=== PATIENT | female | born 1955 | race Caucasian/White ===

== ENCOUNTER 2017-10-20 21:29 | Inpatient (IN) | payer MEDICAID ==
[~2017-10-20] VITALS: Ht 167.6 cm; Wt 65.3 kg
[~2017-10-20 21:29] MED LIST: ALPR2TAB2 PO; AZIT250T81 PO; CLOP75TA35 PO; CYCL-1 PO; FAMO-128 PO; LANTUS SQ; LISI40TA4 PO; NOR5T PO; NOVLG SQ; ONDA4TAB6 PO; SERT100T PO; TRAZ-91 PO; ZOC40T PO
[2017-10-20] MEDS ORDERED: normal saline 1000ML IV soln IV ONE (21:55)
[2017-10-20 22:14] LABS: BASOPHILS % (AUTO) 0 % (0-1); EOSINOPHILS % (AUTO) 0 % (0-6); HEMATOCRIT 33.2 % (35.0-45.0); HEMOGLOBIN 10.2 g/dl (12.0-16.0); LYMPHOCYTES # (AUTO) 0.5 X10'3 (1.1-4.8); LYMPHOCYTES % (AUTO) 4.7 % (21-51); MEAN CORPUSCULAR HEMOGLOBIN 20.8 PG (27.0-31.0); MEAN CORPUSCULAR HGB CONC 30.7 % (33.0-36.5); MEAN CORPUSCULAR VOLUME 67.8 FL (78-98); MEAN PLATELET VOLUME 8.7 FL (7.4-10.4); MONOCYTES # (AUTO) 0.1 X10'3 (0-0.9); MONOCYTES % (AUTO) 0.7 % (2-12); NEUTROPHILS # (AUTO) 10.4 X10'3 (1.8-7.7); NEUTROPHILS % (AUTO) 94.6 % (42-75); PLATELET COUNT 442 X10'3 (140-440); RED BLOOD COUNT 4.89 X10'6 (4.20-5.60); RED CELL DISTRIBUTION WIDTH 21.6 % (11.5-14.5)
[2017-10-20 22:25] LABS: PARTIAL THROMBOPLASTIN TIME 23 SECONDS (22-32); PROTHROMBIN TIME 10.7 SECONDS (9.0-12.0)
[2017-10-20 22:38] LABS: ALANINE AMINOTRANSFERASE 19 U/L (12-78); ALKALINE PHOSPHATASE 244 IU/L (46-116); ANION GAP 32 (8-16); ASPARTATE AMINO TRANSFERASE 14 U/L (10-37); BILIRUBIN,TOTAL 0.7 MG/DL (0.1-1.0); BLOOD UREA NITROGEN 52 MG/DL (7-18); BUN/CREATININE RATIO 20.3 (6.6-38.0); CALCIUM 9.7 MG/DL (8.5-10.1); CHLORIDE 82 MMOL/L (99-107); CREATININE 2.56 MG/DL (0.40-0.90); MAGNESIUM 2.6 MG/DL (1.5-2.4); SODIUM 122 MMOL/L (135-145); TOTAL PROTEIN 8.2 G/DL (6.4-8.2); TROPONIN I < 0.04 NG/ML (0.0-0.05); eGFR 19 ML/MIN
[2017-10-20] MEDS: sodium bicarbonate (8.4%) 1 mEq/ml syringe IV ONE ×2 (22:39→22:47)
[2017-10-20] MEDS ORDERED: normal saline 1000ML IV soln IVB ONE (22:40)
[2017-10-20 22:42] LABS: POTASSIUM 6.9 MMOL/L (3.5-5.1)
[2017-10-20 22:43] LABS: TOTAL CARBON DIOXIDE 8.3 MMOL/L (24-32)
[2017-10-20] MEDS ORDERED: insulin regular, DKA only 100 UNIT in normal saline 100ml IV soln 99 ML IV SCH ×2 (22:45)
[2017-10-20] MEDS ORDERED: potassium Cl 20 mEq SR tablet PO PRN ×2 (22:45)
[2017-10-20] MEDS ORDERED: potassium Cl 40MEQ/NS 500ml 500 ML IV PRN ×2 (22:45)
[2017-10-20] MEDS ORDERED: potassium CL 20mEq in D5-1/2NS 1,000 ML IV PRN (22:45)
[2017-10-20] MEDS ORDERED: sodium bicarbonate (8.4%) inj. 50 MEQ in sodium chloride 0.45% 500ml 250 ML IV PRN (22:45)
[2017-10-20] MEDS ORDERED: insulin regular, human 10 units/0.1 ml syringe SQ PRN (22:45)
[2017-10-20] MEDS ORDERED: sodium bicarbonate (8.4%) inj. 100 MEQ in sodium chloride 0.45% 500ml 500 ML IV PRN (22:45)
[2017-10-20] MEDS ORDERED: K and/or MAG REPLACEMENT MC SCH (22:45)
[2017-10-20] MEDS ORDERED: sodium phosphate inj. 15 MMOL in dextrose 5%-water 150 ML IV PRN (22:45)
[2017-10-20] MEDS ORDERED: normal saline 1000ml 1,000 ML IV SCH (22:45)
[2017-10-20] MEDS ORDERED: Neutra Phos packet PO PRN (22:45)
[2017-10-20] MEDS ORDERED: sodium phosphate inj. 30 MMOL in dextrose 5%-water 250 ML IV PRN (22:45)
[2017-10-20] MEDS ORDERED: calcium gluconate inj. 2 GM in normal saline 100ml IV soln 100 ML IV ONE (22:50)
[2017-10-20] MEDS ORDERED: insulin regular, human 10 units/0.1 ml syringe IV ONE (22:50)
[2017-10-20 22:57] LABS: GLUCOSE 1184 MG/DL (70-104)
[2017-10-20] MEDS ORDERED: insulin R INFUSION 1 ML IV ONE (23:01)
[2017-10-20 23:11] LABS: PHOSPHORUS 7.1 MG/DL (2.3-4.5)
[2017-10-21] VITALS (30 sets, daily range): BP systolic 123–188; BP diastolic 49–80
[2017-10-21] LABS: CLARITY,URINE Clear (Clear); COLOR,URINE Yellow (Yellow); GLUCOSE, URINE >=1000 mg/dl (Neg); KETONES,URINE 80 mg/dl (Neg); LEUKOCYTE ESTERASE ,URINE Negative (Neg); NITRITES, URINE Negative (Neg); OCCULT BLOOD,URINE Negative (Neg); PROTEIN,URINE Trace mg/dl (Neg); UROBILINOGEN,URINE 0.2 E.U/dL (0.2-1.0)
[2017-10-21 00:01] LABS: ABG BASE EXCESS -19.1 mmol/L (-2.0-3.0); ABG HCO3 7.8 mmol/L (22.0-26.0); ABG OXYGEN SATURATION 92.9 % (95-98); ABG PCO2 (T) 22.5 mmHg (32.0-45.0); ABG PO2 (T) 81.2 mmHg (83-108); ALLEN'S TEST Positive; FCOHb 0.8 % (0.5-1.5); FMetHb 0.3 % (0.3-1.12); FO2Hb 91.9 % (94-100); TOTAL HEMOGLOBIN 9.7 G/dl (12.0-16.0)
[2017-10-21] MEDS: insulin regular, DKA only 100 UNIT in normal saline 100ml IV soln 99 ML IV SCH ×4 (00:07→10:06)
[2017-10-21] MEDS ORDERED: potassium CL 20mEq in D5-1/2NS 1,000 ML IV PRN (00:07)
[2017-10-21] MEDS: normal saline 1000ml 1,000 ML IV SCH ×5 (00:07→16:07)
[2017-10-21] MEDS ORDERED: acetaminophen 650mg rectal suppository RC PRN (00:10)
[2017-10-21] MEDS ORDERED: ondansetron/PF 4mg/2ml inj IV PRN (00:10)
[2017-10-21] MEDS ORDERED: potassium Cl 40MEQ/NS 500ml 500 ML IV PRN ×2 (00:10)
[2017-10-21] MEDS ORDERED: insulin regular, human 10 units/0.1 ml syringe SQ PRN (00:10)
[2017-10-21] MEDS ORDERED: sodium phosphate inj. 30 MMOL in dextrose 5%-water 250 ML IV PRN (00:10)
[2017-10-21] MEDS ORDERED: magnesium hydroxide 30ml (MOM) UD suspension PO PRN (00:10)
[2017-10-21] MEDS ORDERED: Neutra Phos packet PO PRN (00:10)
[2017-10-21] MEDS ORDERED: sodium phosphate inj. 15 MMOL in dextrose 5%-water 150 ML IV PRN (00:10)
[2017-10-21] MEDS ORDERED: acetaminophen 325mg tablet PO PRN ×2 (00:10)
[2017-10-21 00:11] LABS: UA COLLECTION TYPE FOLEY CATH
[2017-10-21 00:12] LABS: BACTERIA,URINE NONE SEEN /HPF (Neg); RBC,URINE NONE SEEN /HPF (0-2); SQUAMOUS EPITHELIAL CELL,UR FEW /LPF (FEW); WBC,URINE NONE SEEN /HPF (0-4)
[2017-10-21] MEDS ORDERED: labetalol 20mg/4ml (5mg/ml) syringe IV ONE ×2 (03:25→03:34)
[2017-10-21 05:33] LABS: BASOPHILS % (AUTO) 0.2 % (0-1); EOSINOPHILS % (AUTO) 0.1 % (0-6); HEMATOCRIT 29.6 % (35.0-45.0); HEMOGLOBIN 9.4 g/dl (12.0-16.0); LYMPHOCYTES # (AUTO) 1.3 X10'3 (1.1-4.8); LYMPHOCYTES % (AUTO) 10.9 % (21-51); MEAN CORPUSCULAR HEMOGLOBIN 20.8 PG (27.0-31.0); MEAN CORPUSCULAR HGB CONC 31.7 % (33.0-36.5); MEAN CORPUSCULAR VOLUME 65.7 FL (78-98); MEAN PLATELET VOLUME 7.9 FL (7.4-10.4); MONOCYTES # (AUTO) 0.7 X10'3 (0-0.9); MONOCYTES % (AUTO) 5.5 % (2-12); NEUTROPHILS # (AUTO) 9.8 X10'3 (1.8-7.7); NEUTROPHILS % (AUTO) 83.3 % (42-75); PLATELET COUNT 438 X10'3 (140-440); RED BLOOD COUNT 4.51 X10'6 (4.20-5.60); RED CELL DISTRIBUTION WIDTH 20.5 % (11.5-14.5); WHITE BLOOD COUNT 11.7 X10'3 (4.5-11.0)
[2017-10-21 05:49] LABS: PARTIAL THROMBOPLASTIN TIME 21 SECONDS (22-32); PROTHROMBIN TIME 10.8 SECONDS (9.0-12.0)
[2017-10-21 05:59] LABS: ALANINE AMINOTRANSFERASE 16 U/L (12-78); ALBUMIN 3.4 G/DL (3.4-5.0); ALBUMIN/GLOBULIN RATIO 0.9 (1.1-1.5); ALKALINE PHOSPHATASE 189 IU/L (46-116); AMYLASE 640 U/L (25-115); ANION GAP 11 (8-16); ASPARTATE AMINO TRANSFERASE 10 U/L (10-37); BILIRUBIN,TOTAL 0.3 MG/DL (0.1-1.0); BLOOD UREA NITROGEN 42 MG/DL (7-18); BUN/CREATININE RATIO 19.6 (6.6-38.0); CALCIUM 9.2 MG/DL (8.5-10.1); CHLORIDE 107 MMOL/L (99-107); CREATINE KINASE 37 U/L (26-192); CREATININE 2.14 MG/DL (0.40-0.90); GLUCOSE 402 MG/DL (70-104); LIPASE 134 U/L (73-393); MAGNESIUM 2.2 MG/DL (1.5-2.4); POTASSIUM 3.3 MMOL/L (3.5-5.1); SODIUM 143 MMOL/L (135-145); TOTAL CARBON DIOXIDE 24.8 MMOL/L (24-32); TOTAL PROTEIN 7.4 G/DL (6.4-8.2); eGFR 23 ML/MIN
[2017-10-21] MEDS: docusate sod 100mg capsule PO SCH ×2 (08:00→21:29)
[2017-10-21] MEDS: heparin, porcine 5000 units/ml vial SQ SCH ×2 (08:19→21:30)
[2017-10-21] MEDS: pantoprazole 40 MG vial IV SCH (08:19)
[2017-10-21 09:15] LABS: ALBUMIN 3.3 G/DL (3.4-5.0); ANION GAP 10 (8-16); BLOOD UREA NITROGEN 37 MG/DL (7-18); BUN/CREATININE RATIO 21.5 (6.6-38.0); CHLORIDE 112 MMOL/L (99-107); CREATININE 1.72 MG/DL (0.40-0.90); GLUCOSE 152 MG/DL (70-104); PHOSPHORUS 1.9 MG/DL (2.3-4.5); POTASSIUM 3.3 MMOL/L (3.5-5.1); SODIUM 149 MMOL/L (135-145); TOTAL CARBON DIOXIDE 27.2 MMOL/L (24-32); eGFR 30 ML/MIN
[2017-10-21] MEDS ORDERED: enalaprilat dihydrate 2.5mg/2ml vial IV PRN (11:00)
[2017-10-21 11:05] LABS: MAGNESIUM 2.1 MG/DL (1.5-2.4)
[2017-10-21] MEDS ORDERED: dextrose ORAL solution 15 GM/59 ML bottle PO PRN ×2 (11:55)
[2017-10-21] MEDS ORDERED: dextrose 50%-water 50ml dispensing syringe IV PRN ×2 (11:55)
[2017-10-21] MEDS: insulin Lispro (HumaLOG) vial - multi-dose SQ SCH ×2 (14:07→21:59)
[2017-10-21 17:27] LABS: ALANINE AMINOTRANSFERASE 18 U/L (12-78); ALBUMIN 2.9 G/DL (3.4-5.0); ALBUMIN/GLOBULIN RATIO 0.8 (1.1-1.5); ALKALINE PHOSPHATASE 133 IU/L (46-116); ANION GAP 12 (8-16); ASPARTATE AMINO TRANSFERASE 14 U/L (10-37); BILIRUBIN,TOTAL 0.2 MG/DL (0.1-1.0); BLOOD UREA NITROGEN 31 MG/DL (7-18); BUN/CREATININE RATIO 18.9 (6.6-38.0); CALCIUM 8.6 MG/DL (8.5-10.1); CHLORIDE 107 MMOL/L (99-107); CREATININE 1.64 MG/DL (0.40-0.90); GLUCOSE 181 MG/DL (70-104); MAGNESIUM 1.8 MG/DL (1.5-2.4); PHOSPHORUS 2.5 MG/DL (2.3-4.5); POTASSIUM 3.6 MMOL/L (3.5-5.1); SODIUM 143 MMOL/L (135-145); TOTAL CARBON DIOXIDE 23.9 MMOL/L (24-32); TOTAL PROTEIN 6.4 G/DL (6.4-8.2); eGFR 32 ML/MIN
[2017-10-21] MEDS ORDERED: SIMVASTATIN 40 MG PO SCH (21:00)
[2017-10-21] MEDS: atorvastatin 20mg tablet PO SCH (21:29)
[2017-10-21] MEDS: insulin glargine (Lantus) pen - multi-dose SQ SCH (21:37)
[2017-10-21] MEDS: sodium chloride 0.45% 1,000 ML IV SCH (22:45)
[2017-10-22 02:06] LABS: PARTIAL THROMBOPLASTIN TIME 24 SECONDS (22-32); PROTHROMBIN TIME 10.6 SECONDS (9.0-12.0)
[2017-10-22 02:11] LABS: ALANINE AMINOTRANSFERASE 14 U/L (12-78); ALBUMIN 2.7 G/DL (3.4-5.0); ALBUMIN/GLOBULIN RATIO 0.8 (1.1-1.5); ALKALINE PHOSPHATASE 132 IU/L (46-116); ANION GAP 10 (8-16); ASPARTATE AMINO TRANSFERASE 14 U/L (10-37); BILIRUBIN,TOTAL 0.3 MG/DL (0.1-1.0); BLOOD UREA NITROGEN 25 MG/DL (7-18); BUN/CREATININE RATIO 17.6 (6.6-38.0); CALCIUM 8.4 MG/DL (8.5-10.1); CHLORIDE 108 MMOL/L (99-107); CREATININE 1.42 MG/DL (0.40-0.90); GLUCOSE 171 MG/DL (70-104); MAGNESIUM 1.7 MG/DL (1.5-2.4); POTASSIUM 4.2 MMOL/L (3.5-5.1); SODIUM 141 MMOL/L (135-145); TOTAL CARBON DIOXIDE 22.9 MMOL/L (24-32); TOTAL PROTEIN 6.1 G/DL (6.4-8.2); eGFR 37 ML/MIN
[2017-10-22 02:19] LABS: BASOPHILS # (AUTO) 0.1 X10'3 (0-0.2); BASOPHILS % (AUTO) 0.6 % (0-1); EOSINOPHILS # (AUTO) 0.3 X10'3 (0-0.9); EOSINOPHILS % (AUTO) 2.3 % (0-6); HEMATOCRIT 26.7 % (35.0-45.0); HEMOGLOBIN 8.4 g/dl (12.0-16.0); LYMPHOCYTES # (AUTO) 3.1 X10'3 (1.1-4.8); LYMPHOCYTES % (AUTO) 23.3 % (21-51); MEAN CORPUSCULAR HEMOGLOBIN 20.8 PG (27.0-31.0); MEAN CORPUSCULAR HGB CONC 31.4 % (33.0-36.5); MEAN CORPUSCULAR VOLUME 66.2 FL (78-98); MEAN PLATELET VOLUME 8.5 FL (7.4-10.4); MONOCYTES # (AUTO) 0.4 X10'3 (0-0.9); MONOCYTES % (AUTO) 2.8 % (2-12); NEUTROPHILS # (AUTO) 9.4 X10'3 (1.8-7.7); PLATELET COUNT 358 X10'3 (140-440); RED BLOOD COUNT 4.02 X10'6 (4.20-5.60); RED CELL DISTRIBUTION WIDTH 21.5 % (11.5-14.5); WHITE BLOOD COUNT 13.3 X10'3 (4.5-11.0)
[2017-10-22 03:00] VITALS: BP 134/54
[2017-10-22 03:20] LABS: ANISOCYTOSIS 3+; HYPOCHROMASIA 1+; MICROCYTOSIS 2+; PLATELET ESTIMATE NORMAL; SPHEROCYTES 2+
[2017-10-22] MEDS: sodium chloride 0.45% 1,000 ML IV SCH (05:47)
[2017-10-22 06:00] VITALS: BP 145/55
[2017-10-22] MEDS ORDERED: non-formulary drug (Lisinopril* 1 TAB) PO SCH (08:00)
[2017-10-22] MEDS: lisinopril 20mg tablet PO SCH (08:13)
[2017-10-22] MEDS: clopidogrel 75mg tablet PO SCH (08:13)
[2017-10-22] MEDS: docusate sod 100mg capsule PO SCH ×2 (08:13→19:17)
[2017-10-22] MEDS: heparin, porcine 5000 units/ml vial SQ SCH ×2 (08:14→19:16)
[2017-10-22] MEDS: amLODIPine 5mg tablet PO SCH (08:14)
[2017-10-22] MEDS: pantoprazole 40 MG vial IV SCH (08:14)
[2017-10-22] MEDS: insulin Lispro (HumaLOG) vial - multi-dose SQ SCH ×3 (09:15→19:21)
[2017-10-22] MEDS ORDERED: HYDROcodone/acetaminophen 5mg/325mg tablet PO ONE (09:40)
[2017-10-22 10:07] LABS: ALANINE AMINOTRANSFERASE 14 U/L (12-78); ALBUMIN 2.4 G/DL (3.4-5.0); ALBUMIN/GLOBULIN RATIO 0.8 (1.1-1.5); ALKALINE PHOSPHATASE 118 IU/L (46-116); ANION GAP 5 (8-16); ASPARTATE AMINO TRANSFERASE 14 U/L (10-37); BILIRUBIN,TOTAL 0.3 MG/DL (0.1-1.0); BLOOD UREA NITROGEN 22 MG/DL (7-18); CALCIUM 7.9 MG/DL (8.5-10.1); CHLORIDE 107 MMOL/L (99-107); CREATININE 1.16 MG/DL (0.40-0.90); GLUCOSE 291 MG/DL (70-104); MAGNESIUM 1.6 MG/DL (1.5-2.4); PHOSPHORUS 2.1 MG/DL (2.3-4.5); POTASSIUM 4.1 MMOL/L (3.5-5.1); SODIUM 138 MMOL/L (135-145); TOTAL CARBON DIOXIDE 26.3 MMOL/L (24-32); TOTAL PROTEIN 5.5 G/DL (6.4-8.2); eGFR 47 ML/MIN
[2017-10-22 11:00] VITALS: BP 105/66
[2017-10-22 18:16] LABS: ALANINE AMINOTRANSFERASE 16 U/L (12-78); ALBUMIN 2.6 G/DL (3.4-5.0); ALBUMIN/GLOBULIN RATIO 0.8 (1.1-1.5); ALKALINE PHOSPHATASE 125 IU/L (46-116); ANION GAP 6 (8-16); ASPARTATE AMINO TRANSFERASE 16 U/L (10-37); BILIRUBIN,TOTAL 0.2 MG/DL (0.1-1.0); BLOOD UREA NITROGEN 25 MG/DL (7-18); BUN/CREATININE RATIO 21.4 (6.6-38.0); CALCIUM 8.3 MG/DL (8.5-10.1); CHLORIDE 109 MMOL/L (99-107); CREATININE 1.17 MG/DL (0.40-0.90); GLUCOSE 145 MG/DL (70-104); MAGNESIUM 1.7 MG/DL (1.5-2.4); PHOSPHORUS 2.4 MG/DL (2.3-4.5); SODIUM 141 MMOL/L (135-145); TOTAL CARBON DIOXIDE 26.2 MMOL/L (24-32); TOTAL PROTEIN 5.8 G/DL (6.4-8.2); eGFR 47 ML/MIN
[2017-10-22 19:00] VITALS: BP 99/64
[2017-10-22] MEDS: atorvastatin 20mg tablet PO SCH (21:36)
[2017-10-22] MEDS: insulin glargine (Lantus) pen - multi-dose SQ SCH (21:38)
[2017-10-22 23:00] VITALS: BP 145/58
[2017-10-23] MEDS: cyclobenzaprine 10mg tablet PO PRN ×2 (00:19→09:01)
[2017-10-23 01:25] LABS: PARTIAL THROMBOPLASTIN TIME 22 SECONDS (22-32); PROTHROMBIN TIME 9.9 SECONDS (9.0-12.0)
[2017-10-23 01:27] LABS: HEMATOCRIT 30.5 % (35.0-45.0); HEMOGLOBIN 9.6 g/dl (12.0-16.0); MEAN CORPUSCULAR HGB CONC 31.3 % (33.0-36.5)
[2017-10-23 01:28] LABS: ALANINE AMINOTRANSFERASE 18 U/L (12-78); ALBUMIN 2.9 G/DL (3.4-5.0); ALBUMIN/GLOBULIN RATIO 0.8 (1.1-1.5); ALKALINE PHOSPHATASE 159 IU/L (46-116); ANION GAP 6 (8-16); ASPARTATE AMINO TRANSFERASE 18 U/L (10-37); BILIRUBIN,TOTAL 0.2 MG/DL (0.1-1.0); BLOOD UREA NITROGEN 25 MG/DL (7-18); BUN/CREATININE RATIO 22.1 (6.6-38.0); CALCIUM 8.7 MG/DL (8.5-10.1); CHLORIDE 105 MMOL/L (99-107); CREATININE 1.13 MG/DL (0.40-0.90); GLUCOSE 249 MG/DL (70-104); MAGNESIUM 1.7 MG/DL (1.5-2.4); POTASSIUM 4.3 MMOL/L (3.5-5.1); SODIUM 137 MMOL/L (135-145); TOTAL CARBON DIOXIDE 26.1 MMOL/L (24-32); TOTAL PROTEIN 6.5 G/DL (6.4-8.2); eGFR 49 ML/MIN
[2017-10-23 01:34] LABS: MEAN PLATELET VOLUME 8.1 FL (7.4-10.4); PLATELET COUNT 348 X10'3 (140-440); RED BLOOD COUNT 4.54 X10'6 (4.20-5.60); RED CELL DISTRIBUTION WIDTH 20.3 % (11.5-14.5); WHITE BLOOD COUNT 6.5 X10'3 (4.5-11.0)
[2017-10-23 01:53] LABS: ANISOCYTOSIS 2+; PLATELET ESTIMATE NORMAL; TOTAL CELLS COUNTED 100
[2017-10-23 01:54] LABS: MICROCYTOSIS 2+
[2017-10-23 01:55] LABS: ELLIPTOCYTES 1+; HYPOCHROMASIA 1+
[2017-10-23 01:56] LABS: SPHEROCYTES 1+
[2017-10-23 03:00] VITALS: BP 167/69
[2017-10-23 06:30] VITALS: BP 166/69
[2017-10-23] MEDS ORDERED: pantoprazole 40mg Tablet.DR PO SCH (07:30)
[2017-10-23] MEDS: heparin, porcine 5000 units/ml vial SQ SCH (07:31)
[2017-10-23] MEDS: lisinopril 20mg tablet PO SCH (07:31)
[2017-10-23] MEDS: amLODIPine 5mg tablet PO SCH (07:31)
[2017-10-23] MEDS: docusate sod 100mg capsule PO SCH (07:32)
[2017-10-23] MEDS: clopidogrel 75mg tablet PO SCH (07:32)
[2017-10-23] MEDS: insulin Lispro (HumaLOG) vial - multi-dose SQ SCH ×3 (07:33→13:04)
[2017-10-23 09:51] LABS: ALANINE AMINOTRANSFERASE 15 U/L (12-78); ALBUMIN 2.5 G/DL (3.4-5.0); ALBUMIN/GLOBULIN RATIO 0.7 (1.1-1.5); ALKALINE PHOSPHATASE 147 IU/L (46-116); ANION GAP 10 (8-16); ASPARTATE AMINO TRANSFERASE 12 U/L (10-37); BILIRUBIN,TOTAL 0.2 MG/DL (0.1-1.0); BLOOD UREA NITROGEN 24 MG/DL (7-18); BUN/CREATININE RATIO 18.5 (6.6-38.0); CALCIUM 8.2 MG/DL (8.5-10.1); CHLORIDE 103 MMOL/L (99-107); GLUCOSE 345 MG/DL (70-104); MAGNESIUM 1.4 MG/DL (1.5-2.4); PHOSPHORUS 1.7 MG/DL (2.3-4.5); POTASSIUM 3.7 MMOL/L (3.5-5.1); SODIUM 137 MMOL/L (135-145); TOTAL CARBON DIOXIDE 24.1 MMOL/L (24-32); TOTAL PROTEIN 5.9 G/DL (6.4-8.2); eGFR 41 ML/MIN
[2017-10-23 11:00] VITALS: BP 146/59
[2017-10-23 15:00] VITALS: BP 150/66
[2017-10-23 17:27] LABS: ALANINE AMINOTRANSFERASE 20 U/L (12-78); ALBUMIN 2.6 G/DL (3.4-5.0); ALBUMIN/GLOBULIN RATIO 0.7 (1.1-1.5); ALKALINE PHOSPHATASE 151 IU/L (46-116); ANION GAP 8 (8-16); ASPARTATE AMINO TRANSFERASE 20 U/L (10-37); BILIRUBIN,TOTAL 0.3 MG/DL (0.1-1.0); BLOOD UREA NITROGEN 27 MG/DL (7-18); BUN/CREATININE RATIO 28.7 (6.6-38.0); CALCIUM 8.5 MG/DL (8.5-10.1); CHLORIDE 104 MMOL/L (99-107); CREATININE 0.94 MG/DL (0.40-0.90); GLUCOSE 86 MG/DL (70-104); MAGNESIUM 1.4 MG/DL (1.5-2.4); PHOSPHORUS 2.8 MG/DL (2.3-4.5); POTASSIUM 3.6 MMOL/L (3.5-5.1); SODIUM 140 MMOL/L (135-145); TOTAL CARBON DIOXIDE 27.7 MMOL/L (24-32); TOTAL PROTEIN 6.2 G/DL (6.4-8.2); eGFR 60 ML/MIN
== END 2017-10-23 19:00 | disposition home or self-care (01) | DRG 469 ==
LOC: ER 21:29 → ED HOLD 10-21 00:07 → ICU 2S 10-21 01:20 → PCU 3S 10-21 22:45
PROVIDERS: ADMIT Internal Medicine Critical Care Medicine; ATTEND Internal Medicine Critical Care Medicine
DX: N17.9 Acute kidney failure, unspecified (principal); G93.40 Encephalopathy, unspecified; E10.10 Type 1 diabetes mellitus with ketoacidosis without coma; E10.22 Type 1 diabetes mellitus with diabetic chronic kidney disease; E87.5 Hyperkalemia; K86.1 Other chronic pancreatitis; N18.3 Chronic kidney disease, stage 3 (moderate); E78.5 Hyperlipidemia, unspecified; E78.00 Pure hypercholesterolemia, unspecified; I12.9 Hypertensive chronic kidney disease with stage 1 through stage 4 chronic kidney disease, or unspecified chronic kidney disease; J44.9 Chronic obstructive pulmonary disease, unspecified; K21.9 Gastro-esophageal reflux disease without esophagitis; M79.7 Fibromyalgia; Z79.02 Long term (current) use of antithrombotics/antiplatelets; Z79.4 Long term (current) use of insulin; Z79.899 Other long term (current) drug therapy; Z86.73 Personal history of transient ischemic attack (TIA), and cerebral infarction without residual deficits; Z87.11 Personal history of peptic ulcer disease; Z87.891 Personal history of nicotine dependence; Z90.710 Acquired absence of both cervix and uterus; Z88.2 Allergy status to sulfonamides; Z88.8 Allergy status to other drugs, medicaments and biological substances
CPT/HCPCS: 36415; 36600; 71045; 80048; 80053; 81001; 81003; 82150; 82550; 82803; 82948; 83605; 83690; 83735; 83880; 84100; 84145; 84484; 85018; 85025; 85610; 85730; 87040; 87070; 93005; 96361; 96365; 96375; 97110; 97116; 97161; 99285; A6213; C1758; C9113; J0610; J1644; J1815; J3480; J3490; J7030; J7060

== ENCOUNTER 2018-03-05 07:29 | Inpatient (IN) | payer MEDICAID ==
[~2018-03-05] VITALS: Ht 165.1 cm; Wt 54.5 kg
[~2018-03-05 07:29] MED LIST changes: -AZIT250T81 PO; -CYCL-1 PO; -FAMO-128 PO; -ONDA4TAB6 PO
[2018-03-05] MEDS ORDERED: normal saline 1000ML IV soln IVB ONE (07:35)
[2018-03-05] MEDS ORDERED: insulin regular, human 10 units/0.1 ml syringe SQ ONE (07:55)
[2018-03-05 08:29] LABS: CLARITY,URINE CLEAR (Clear); COLOR,URINE YELLOW (Yellow); GLUCOSE, URINE >=1000 mg/dl (Neg); KETONES,URINE 15 mg/dl (Neg); LEUKOCYTE ESTERASE ,URINE NEGATIVE (Neg); NITRITES, URINE POSITIVE (Neg); OCCULT BLOOD,URINE NEGATIVE (Neg); PROTEIN,URINE NEGATIVE (Neg); UROBILINOGEN,URINE 0.2 E.U/dL (0.2-1.0)
[2018-03-05 08:32] LABS: BASOPHILS % (AUTO) 1.1 % (0-1); EOSINOPHILS # (AUTO) 0.2 X10'3 (0-0.9); EOSINOPHILS % (AUTO) 5.9 % (0-6); HEMATOCRIT 28.5 % (35.0-45.0); HEMOGLOBIN 9.4 g/dl (12.0-16.0); LYMPHOCYTES % (AUTO) 25.4 % (21-51); MEAN CORPUSCULAR HEMOGLOBIN 22.3 PG (27.0-31.0); MEAN CORPUSCULAR HGB CONC 33.1 % (33.0-36.5); MEAN CORPUSCULAR VOLUME 67.3 FL (78-98); MEAN PLATELET VOLUME 7.9 FL (7.4-10.4); MONOCYTES # (AUTO) 0.2 X10'3 (0-0.9); MONOCYTES % (AUTO) 6.5 % (2-12); NEUTROPHILS # (AUTO) 2.4 X10'3 (1.8-7.7); NEUTROPHILS % (AUTO) 61.1 % (42-75); PLATELET COUNT 329 X10'3 (140-440); RED BLOOD COUNT 4.23 X10'6 (4.20-5.60); RED CELL DISTRIBUTION WIDTH 18.3 % (11.5-14.5); WHITE BLOOD COUNT 3.8 X10'3 (4.5-11.0)
[2018-03-05 08:38] LABS: PARTIAL THROMBOPLASTIN TIME 24 SECONDS (22-32); PROTHROMBIN TIME 9.9 SECONDS (9.0-12.0)
[2018-03-05 08:44] LABS: UA COLLECTION TYPE STRAIGHT CATH
[2018-03-05 08:45] LABS: BACTERIA,URINE 3+ /HPF (Neg); SQUAMOUS EPITHELIAL CELL,UR FEW /LPF (FEW)
[2018-03-05 08:46] LABS: RBC,URINE 0-2 /HPF (0-2); WBC CLUMPS,URINE MODERATE /HPF (NEGATIVE)
[2018-03-05 08:51] LABS: URINE AMPHETAMINE SCREEN NEGATIVE (Neg); URINE BARBITUATE SCREEN NEGATIVE (Neg); URINE BENZODIAZEPINES SCREEN NEGATIVE (Neg); URINE CANNABINOID SCREEN NEGATIVE (Neg); URINE COCAINE SCREEN NEGATIVE (Neg); URINE METHADONE SCREEN NEGATIVE (Neg); URINE OPIATE SCREEN POSITIVE (Neg); URINE PHENCYCLIDINE SCREEN NEGATIVE (Neg)
[2018-03-05 08:52] LABS: ALANINE AMINOTRANSFERASE 19 U/L (12-78); ALBUMIN 3.6 G/DL (3.4-5.0); ALBUMIN/GLOBULIN RATIO 0.9 (1.1-1.5); ALKALINE PHOSPHATASE 211 IU/L (46-116); ANION GAP 13 (8-16); ASPARTATE AMINO TRANSFERASE 15 U/L (10-37); BILIRUBIN,TOTAL 0.3 MG/DL (0.1-1.0); BLOOD UREA NITROGEN 49 MG/DL (7-18); BUN/CREATININE RATIO 27.7 (6.6-38.0); CALCIUM 8.8 MG/DL (8.5-10.1); CHLORIDE 96 MMOL/L (99-107); CREATININE 1.77 MG/DL (0.40-0.90); ETHANOL < 0.010 GM/DL (0.0-0.010); MAGNESIUM 2.1 MG/DL (1.5-2.4); POTASSIUM 4.6 MMOL/L (3.5-5.1); SODIUM 132 MMOL/L (135-145); TOTAL CARBON DIOXIDE 22.6 MMOL/L (24-32); TOTAL PROTEIN 7.7 G/DL (6.4-8.2); eGFR 29 ML/MIN
[2018-03-05 08:53] LABS: ACETAMINOPHEN < 2.0 UG/ML (10-30)
[2018-03-05 08:56] LABS: GLUCOSE 513 MG/DL (70-104)
[2018-03-05] MEDS ORDERED: insulin regular, human 100 UNIT in normal saline 100ml IV soln 99 ML IV PRN ×2 (09:20)
[2018-03-05] MEDS ORDERED: levoFLOXACIN-Levaquin 250mg/D5 50 ML IV ONE (09:20)
[2018-03-05] MEDS ORDERED: ondansetron/PF 4mg/2ml inj IV PRN (10:00)
[2018-03-05] MEDS ORDERED: dextrose ORAL solution 15 GM/59 ML bottle PO PRN ×2 (10:00)
[2018-03-05] MEDS ORDERED: mag hydrox/Alum hydrox/simeth 30ml oral suspension PO PRN (10:00)
[2018-03-05] MEDS ORDERED: acetaminophen 325mg tablet PO PRN (10:00)
[2018-03-05] MEDS ORDERED: morphine 2 MG/ML inj. syringe IV PRN ×2 (10:00)
[2018-03-05] MEDS ORDERED: glucagon, human recombinant 1mg kit SUBCUT PRN (10:00)
[2018-03-05] MEDS ORDERED: MESSAGE TO PHARMACY PO ONE (10:00)
[2018-03-05] MEDS ORDERED: dextrose 50%-water 50ml dispensing syringe IV PRN ×2 (10:00)
[2018-03-05] MEDS ORDERED: HYDROcodone/acetaminophen 5mg/325mg tablet PO PRN (10:00)
[2018-03-05] MEDS ORDERED: magnesium hydroxide 30ml (MOM) UD suspension PO PRN (10:00)
[2018-03-05 10:42] LABS: HEMOGLOBIN A1C 11.1 % (4.5-6.2)
[2018-03-05 10:46] LABS: ANISOCYTOSIS 2+; MICROCYTOSIS 1+; PLATELET ESTIMATE NORMAL
[2018-03-05] MEDS: normal saline 1000ml 1,000 ML IV SCH ×2 (10:49→19:59)
[2018-03-05] MEDS: insulin Lispro (HumaLOG) vial - multi-dose SQ SCH (15:40)
[2018-03-05 19:00] VITALS: BP 169/62
[2018-03-05] MEDS: heparin, porcine 5000 units/ml vial SQ SCH (20:48)
[2018-03-05] MEDS: insulin glargine (Lantus) pen - multi-dose SQ SCH (21:00)
[2018-03-05 23:00] VITALS: BP 186/68
[2018-03-06 03:00] VITALS: BP 203/93
[2018-03-06] MEDS: normal saline 1000ml 1,000 ML IV SCH ×2 (05:59→18:14)
[2018-03-06 06:00] VITALS: BP 181/72
[2018-03-06 06:07] LABS: ALBUMIN 3.1 G/DL (3.4-5.0); ANION GAP 14 (8-16); BLOOD UREA NITROGEN 20 MG/DL (7-18); BUN/CREATININE RATIO 23.5 (6.6-38.0); CALCIUM 8.8 MG/DL (8.5-10.1); CHLORIDE 102 MMOL/L (99-107); CREATININE 0.85 MG/DL (0.40-0.90); GLUCOSE 235 MG/DL (70-104); SODIUM 138 MMOL/L (135-145); TOTAL CARBON DIOXIDE 22.2 MMOL/L (24-32); eGFR 67 ML/MIN
[2018-03-06 06:14] LABS: BASOPHILS % (AUTO) 0.4 % (0-1); EOSINOPHILS # (AUTO) 0.1 X10'3 (0-0.9); HEMATOCRIT 31.1 % (35.0-45.0); HEMOGLOBIN 9.8 g/dl (12.0-16.0); LYMPHOCYTES % (AUTO) 25.4 % (21-51); MEAN CORPUSCULAR HEMOGLOBIN 21.1 PG (27.0-31.0); MEAN CORPUSCULAR HGB CONC 31.6 % (33.0-36.5); MEAN CORPUSCULAR VOLUME 66.7 FL (78-98); MONOCYTES # (AUTO) 0.2 X10'3 (0-0.9); MONOCYTES % (AUTO) 6.5 % (2-12); NEUTROPHILS # (AUTO) 2.4 X10'3 (1.8-7.7); NEUTROPHILS % (AUTO) 64.7 % (42-75); PLATELET COUNT 418 X10'3 (140-440); RED BLOOD COUNT 4.66 X10'6 (4.20-5.60); RED CELL DISTRIBUTION WIDTH 19.9 % (11.5-14.5); WHITE BLOOD COUNT 3.8 X10'3 (4.5-11.0)
[2018-03-06] MEDS: heparin, porcine 5000 units/ml vial SQ SCH ×2 (09:20→21:38)
[2018-03-06] MEDS: insulin Lispro (HumaLOG) vial - multi-dose SQ SCH ×4 (09:33→20:05)
[2018-03-06 09:57] LABS: ANISOCYTOSIS 2+; ELLIPTOCYTES FEW; HYPOCHROMASIA 1+; MICROCYTOSIS 2+; PLATELET ESTIMATE NORMAL; SCHISTOCYTES FEW
[2018-03-06 11:00] VITALS: BP 113/72
[2018-03-06] MEDS ORDERED: PANT40SU2 PO (11:04)
[2018-03-06] MEDS ORDERED: LABE100T5 PO (11:04)
[2018-03-06] MEDS: labetalol 100mg tablet PO SCH (11:41)
[2018-03-06] MEDS: clopidogrel 75mg tablet PO SCH (11:41)
[2018-03-06] MEDS ORDERED: pneumococcal 23-VAL P-sac vacc 25 mcg/0.5ml vial IMVAC ONE (12:05)
[2018-03-06 15:00] VITALS: BP 112/54
[2018-03-06 18:00] VITALS: BP 135/56
[2018-03-06] MEDS ORDERED: traZODone 50mg tablet PO SCH (21:00)
[2018-03-06] MEDS: insulin glargine (Lantus) pen - multi-dose SQ SCH (21:43)
[2018-03-06 22:00] VITALS: BP 125/56
[2018-03-07 02:00] VITALS: BP 170/75
[2018-03-07] MEDS: normal saline 1000ml 1,000 ML IV SCH (02:34)
[2018-03-07] MEDS: labetalol 100mg tablet PO SCH (03:51)
[2018-03-07 06:00] VITALS: BP 108/84
[2018-03-07 06:04] LABS: ALBUMIN 2.9 G/DL (3.4-5.0); ANION GAP 13 (8-16); BLOOD UREA NITROGEN 20 MG/DL (7-18); BUN/CREATININE RATIO 23.3 (6.6-38.0); CALCIUM 8.5 MG/DL (8.5-10.1); CHLORIDE 103 MMOL/L (99-107); CREATININE 0.86 MG/DL (0.40-0.90); GLUCOSE 242 MG/DL (70-104); POTASSIUM 3.8 MMOL/L (3.5-5.1); SODIUM 137 MMOL/L (135-145); TOTAL CARBON DIOXIDE 21.2 MMOL/L (24-32); eGFR 66 ML/MIN
[2018-03-07 06:13] LABS: BASOPHILS # (AUTO) 0.1 X10'3 (0-0.2); BASOPHILS % (AUTO) 1.8 % (0-1); EOSINOPHILS # (AUTO) 0.2 X10'3 (0-0.9); EOSINOPHILS % (AUTO) 4.4 % (0-6); HEMATOCRIT 29.4 % (35.0-45.0); HEMOGLOBIN 9.2 g/dl (12.0-16.0); LYMPHOCYTES # (AUTO) 1.5 X10'3 (1.1-4.8); LYMPHOCYTES % (AUTO) 38.5 % (21-51); MEAN CORPUSCULAR HEMOGLOBIN 20.8 PG (27.0-31.0); MEAN CORPUSCULAR HGB CONC 31.4 % (33.0-36.5); MEAN CORPUSCULAR VOLUME 66.4 FL (78-98); MONOCYTES # (AUTO) 0.2 X10'3 (0-0.9); MONOCYTES % (AUTO) 5.2 % (2-12); NEUTROPHILS # (AUTO) 1.9 X10'3 (1.8-7.7); NEUTROPHILS % (AUTO) 50.1 % (42-75); PLATELET COUNT 415 X10'3 (140-440); RED BLOOD COUNT 4.43 X10'6 (4.20-5.60); RED CELL DISTRIBUTION WIDTH 20.6 % (11.5-14.5); WHITE BLOOD COUNT 3.8 X10'3 (4.5-11.0)
[2018-03-07 06:58] LABS: PLATELET ESTIMATE NORMAL
[2018-03-07 06:59] LABS: ANISOCYTOSIS 3+; ELLIPTOCYTES FEW; HYPOCHROMASIA 2+; MICROCYTOSIS 2+; POLYCHROMASIA 1+
[2018-03-07] MEDS ORDERED: pantoprazole 40mg Tablet.DR PO SCH (07:30)
[2018-03-07] MEDS ORDERED: atorvastatin 10mg tablet PO SCH (08:00)
[2018-03-07] MEDS: heparin, porcine 5000 units/ml vial SQ SCH (08:05)
[2018-03-07] MEDS: clopidogrel 75mg tablet PO SCH (08:06)
[2018-03-07] MEDS: insulin Lispro (HumaLOG) vial - multi-dose SQ SCH ×2 (09:35→13:23)
[2018-03-07 11:00] VITALS: BP 174/67
[2018-03-07] MEDS ORDERED: CIPR-230 PO (14:48)
[2018-03-07] MEDS ORDERED: ciprofloxacin 250mg tablet PO ONE (14:55)
[2018-03-07 15:00] VITALS: BP 159/55
== END 2018-03-07 16:50 | disposition home or self-care (01) | DRG 469 ==
LOC: ER 07:31 → OBSVTOIN 09:59 → ED HOLD 09:59 → PCU 3S 13:25
PROVIDERS: ADMIT Internal Medicine; ATTEND Internal Medicine
PROC: 3E0234Z Introduction of Serum, Toxoid and Vaccine into Muscle, Percutaneous Approach (ICD-10-PCS; 2018-03-06)
PROC: 3E02340 Introduction of Influenza Vaccine into Muscle, Percutaneous Approach (ICD-10-PCS; principal; 2018-03-07)
DX: N17.9 Acute kidney failure, unspecified (principal); G93.40 Encephalopathy, unspecified; E11.10 Type 2 diabetes mellitus with ketoacidosis without coma; E11.22 Type 2 diabetes mellitus with diabetic chronic kidney disease; B96.1 Klebsiella pneumoniae [K. pneumoniae] as the cause of diseases classified elsewhere; E78.00 Pure hypercholesterolemia, unspecified; E78.5 Hyperlipidemia, unspecified; E86.0 Dehydration; I12.9 Hypertensive chronic kidney disease with stage 1 through stage 4 chronic kidney disease, or unspecified chronic kidney disease; J44.9 Chronic obstructive pulmonary disease, unspecified; M79.7 Fibromyalgia; B19.20 Unspecified viral hepatitis C without hepatic coma; F32.9 Major depressive disorder, single episode, unspecified; E11.65 Type 2 diabetes mellitus with hyperglycemia; F41.9 Anxiety disorder, unspecified; G89.29 Other chronic pain; M54.9 Dorsalgia, unspecified; M79.671 Pain in right foot; M79.672 Pain in left foot; N18.9 Chronic kidney disease, unspecified; N30.00 Acute cystitis without hematuria; Z79.02 Long term (current) use of antithrombotics/antiplatelets; Z90.710 Acquired absence of both cervix and uterus; Z79.4 Long term (current) use of insulin; Z86.73 Personal history of transient ischemic attack (TIA), and cerebral infarction without residual deficits; Z87.11 Personal history of peptic ulcer disease; Z79.899 Other long term (current) drug therapy; Z88.1 Allergy status to other antibiotic agents; Z88.2 Allergy status to sulfonamides; Z88.8 Allergy status to other drugs, medicaments and biological substances; Z87.891 Personal history of nicotine dependence; Z23 Encounter for immunization
CPT/HCPCS: 36415; 70450; 71045; 80048; 80053; 80305; 80320; 80329; 81001; 82948; 83036; 83605; 83735; 84443; 84484; 85025; 85610; 85730; 87040; 87070; 87077; 87088; 87186; 90732; 93005; 96374; 99291; G0378; J1644; J1815; J1956; J7030; Q2037